=== PATIENT | male | born 1985 | race Caucasian/White ===

== ENCOUNTER 2024-11-15 14:12 | Emergency (ER) | payer MEDICAID, SELFPAY ==
[2024-11-15 14:14] VITALS: BP 141/88; PULSE 68; RESP 18; O2SAT 95
--- NOTE | 2024-11-15 15:00 | DI.RAD_ITS ---
Exam(s) XR ELBOW RT COMPLETE EXAM: XR ELBOW RT COMPLETE CLINICAL HISTORY: C/f distal tendon rupture. TECHNIQUE: 2D digital imaging was performed. COMPARISON: No exams were available for comparison FINDINGS: 3 views No evidence of acute fracture nor elbow joint effusion. There is no swelling of the olecranon bursa although there is a small enthesophyte on the posterior olecranon at the triceps tendon insertion reg ion. Bone density is normal. There are no degenerative changes nor loose intra-articular bodies in the el bow joint. Radial head and neck appear unremarkable as do the epicondyles. IMPRESSION: No significant osseous findings in the right elbow. DATA REPOSITORY: RADIATION DOSE DELIVERED:
--- NOTE | 2024-11-15 15:12 | ED.GENADUL_ITS ---
Discharge Plan Disposition Patient Disposition: Home Condition: Stable Discharge Details Clinical Impression: Traumatic rupture of right distal biceps tendon Primary Care Provider: Unknown,Unknown ED Provider: Nitza Jacobs Home Meds and New Rx's Prescriptions: No Action No Known Home Meds Discharge Instructions Instructions: Muscle Strain ED Additional Instructions: You were seen in the emergency department today for evaluation of a biceps injury and were found to have a tear of your biceps tendon. You will undergo surgery with orthopedics tomorrow, they will call you around 7 AM to let you know what time to come back for the surgery. It will likely be around 10 AM. Please have nothing by mouth after midnight, this includes water or any food even in the morning before you come in. I have provided you with a sling which she should wear for comfort and avoid excessive lifting or activity with that right arm. Please use Tylenol and ibuprofen for management of your pain and thank you for allowing us to be part of your care. Referrals: Michael Joseph MD [ [facility] STAFF PHYSICIAN] - 1 day HPI General Mode of arrival: ambulatory . Date/Time Provider Initiated Documentation: 11/15/24 14:18 . Limitations to Documentation: no limitations . Information obtained by: patient, family and old records reviewed . HPI Narrative: HPI: This is a 39-year-old male patient, previously healthy, [id number], presenting for evaluation of a right biceps injury. The patient reports that approximately 2 hours ago he was pulling something out of his truck, felt a sudden sharp pain and a popping sensation in his right arm. Since that time he has had ongoing pain and feels like it is difficult to extend his arm. The patient was in his normal state of health prior to this event, does not have associated shoulder pain, did not otherwise sustain injury. He has not taken any medications for management of his symptoms. Exam: Gen: Awake and alert, in no apparent distress HEENT: Non-icteric sclera Neck: Supple Lungs: No apparent respiratory distress, normal respiratory effort. CV: Appears well perfused, strong distal pulses Abdomen: Non-distended MSK: Moves 4 extremities without apparent limitation in ROM. The patient has no tenderness to palpation over the proximal biceps tendon at the level of the s houlder, full range of motion of the shoulder. The patient is able to flex his right arm against gravity, has some very subtle weakness of the right arm with resisted flexion compared to the left arm. The patient has breakaway weakness and pain with supination against resistance of the right arm. Tenderness and a small bulge just proximal to the antecubital fossa Skin: Visualized skin without rashes, cyanosis. Neuro: Normal Gait, no obvious focal deficits or facial asymmetry. Speaks in full, clear sentences. Psych: Appropriate for situation. MDM: This is a 39-year-old male patient presenting for evaluation of biceps injury. My differential includes but is not limited to distal biceps rupture, partial tear, strain. The patient reassuringly has no evidence of comorbid traumatic injury, is neurovascularly intact distal to the injury, and was in his normal state of health previously. The case was discussed with orthopedics given the patient's young age and the injury to the dominant arm, and we will proceed with x-rays of the affected elbow. The patient declines medications for management of pain at this time. ED Course: X-ray without osseous abnormality, we were able to obtain an MRI and orthopedics evaluated the patient at bedside. MRI is consistent with a distal biceps tendon rupture, and the plan is for outpatient surgical intervention tomorrow with orthopedics. The patient was provided with a sling, will be n.p.o. at midnight, and understands to reach out to the clinic if he has any questions. He was encouraged to use Tylenol and ibuprofen as needed for pain. At this time, the patient has had a full medical evaluation and is safe for discharge to home. They are hemodynamically stable, ambulatory, and tolerating PO. They are understanding of the follow-up plan and return precautions. They left our facility without incident. Nitza Jacobs MD Related Data Home Medications ?Medication ?Instructions ?Recorded ?Confirmed Unknown [No Known Home Meds] 11/15/24 11/15/24 Allergies Allergy/AdvReac Type Severity Reaction Status Date / Time No Known Allergies Allergy Verified 11/15/24 14:17 General Stated Complaint: Orthopedic DACIA: 4 Course Vital Signs Vital signs: Vital Signs Pulse 68 11/15/24 14:14 Respiratory Rate 18 11/15/24 14:14 Blood Pressure 141/88 H 11/15/24 14:14 Pulse Oximetry 95 11/15/24 14:14 Temperature Source Oral 11/15/24 14:14 Pulse 68 11/15/24 14:14 Respiratory Rate 18 11/15/24 14:14 Blood Pressure 141/88 H 11/15/24 14:14 Blood Pressure Position Sitting 11/15/24 14:14 Pulse Oximetry 95 11/15/24 14:14 Oxygen Delivery Method Room Air 11/15/24 14:14 Oxygen Flow Rate 0 11/15/24 14:14 Medical Decision Making Quality:SDOH Health Related Social Needs: No Data to Display PFSH All Active Problems (Updated 11/15/24 @ 18:14 by Nitza Jacobs MD) Traumatic rupture of right distal biceps tendon (Acute 11/15/24) Corneal abrasion, left (Acute) Social History Smoking/Tobacco Use Status: Current every day Tobacco Type: smokeless tobacco Smoking risk assessment performed?: Yes Alcohol Intake: never Drug use: Never Substance use type: does not use Do you feel safe at home: Yes Do you feel safe in your relationship?: Yes
--- NOTE | 2024-11-15 15:24 | W.ORTHOCONSU ---
PFSH All Active Problems (Updated 10/27/20 @ 18:03 by VIJAY Ortega) Corneal abrasion, left (Acute) Social History Smoking/Tobacco Use Status: Current every day Tobacco Type: smokeless tobacco Smoking risk assessment performed?: Yes Alcohol Intake: never Drug use: Never Substance use type: does not use Do you feel safe at home: Yes Do you feel safe in your relationship?: Yes Results Last Vital Signs Pulse 68 11/15/24 14:14 Resp 18 11/15/24 14:14 BP 141/88 H 11/15/24 14:14 Pulse Ox 95 11/15/24 14:14
--- NOTE | 2024-11-15 15:30 | W.ORTHOCONSU ---
Date of service: 11/15/24 Time of Service: 15:31 Assessment and Plan Assessment and plan (1) Traumatic rupture of right distal biceps tendon: Status: Acute Assessment and plan: 39-year-old [id number] male with right distal biceps injury. Patient was pulling a heavy object out a truck about 2 hours ago and felt a sudden pop in his biceps. Now with significant pain and difficulty with supination and full extension of the elbow. Reports pain is in the mid to distal biceps. Admits to a mild ache or pressure sensation that radiates into his shoulder. Denies numbness, tingling, weakness. Denies prior elbow, arm, shoulder injury. Presents to the ER for evaluation. Declined any pain medication. Elbow x-ray pending. Right arm exam: Skin is intact without erythema or ecchymosis. There is a subtle fullness to the mid-distal biceps when compared to the contralateral side. Demonstrates full range of motion of the shoulder which is essentially painless. No proximal biceps discomfort. Patient demonstrates full flexion. Extension is slightly limited secondary to discomfort. No difficulty with pronation. Moderate discomfort and limitation with supination. I do believe that I can appreciate a tendon with the hook test; however, the test is exquisitely tender. There is mild discomfort about the proximal radius as well. Wrist and hand unremarkable. Sensation intact throughout. Normal radial pulse and capillary refill. Right elbow x-ray ordered and reviewed, no acute bony abnormality. Lateral view is suspicious for Timo. Discussed in length with patient. Patient would want to proceed with surgical intervention if indicated. Concern for high-grade distal biceps rupture. Plan to obtain MRI on the ER and if positive plan for repair tomorrow. MRI pending. Opal update- MRI+ complete distal biceps tear NPO post MN Return tomorrow for surgical repair through [facility] PENDING SALE TO [facility] All Active Problems (Updated 11/15/24 @ 15:40 by Michael Joseph MD) Traumatic rupture of right distal biceps tendon (Acute 11/15/24) Corneal abrasion, left (Acute) Social History Smoking/Tobacco Use Status: Current every day Tobacco Type: smokeless tobacco Smoking risk assessment performed?: Yes Alcohol Intake: never Drug use: Never Substance use type: does not use Do you feel safe at home: Yes Do you feel safe in your relationship?: Yes Results Last Vital Signs Pulse 68 11/15/24 14:14 Resp 18 11/15/24 14:14 BP 141/88 H 11/15/24 14:14 Pulse Ox 95 11/15/24 14:14
--- NOTE | 2024-11-15 15:46 | DI.MRI_ITS ---
Exam(s) MR UPPER JOINT RT WO EXAM: MR UPPER JOINT RT WO CLINICAL HISTORY: Eval distal biceps rupture TECHNIQUE: Multiplanar multisequence MRI was performed without intravenous contrast. COMPARISON: No exams were available for comparison FINDINGS: MARROW: There is no evidence of fracture, bone contusion, nor ominous osseous lesions. ELBOW JOINT: There is no evidence of elbow joint effusion.No significant cartilage loss nor osteochon dral defect and there is no evidence of loose intra-articular body. There are no osteophytes. EPICONDYLES: There is no abnormal intraosseous signal in the epicondyles and there is no significant abnormal signal on the common extensor and flexor tendons. ULNAR COLLATERAL LIGAMENT: The anterior band which extends from the medial epicondyle to the sublime tubercle of the coronoid process of the ulna is intact. This structure is the strongest ligament in t he elbow and is the main opponent to severe valgus stress. RADIAL COLLATERAL LIGAMENT: Intact TENDONS: There appears to be tearing of the biceps tendon both approximately at the musculotendinous junction, at its mid aspect, and distally at the insertional aspect where it appears non continuous at the lev el of the radial tuberosity insertion site. . The brachialis tendon is intact. The triceps tendon is intact. CUBITAL TUNNEL/ULNAR NERVE: The ulnar nerve appears unremarkable beneath the cubital tunnel retinacul um/ arcuate ligament and posterior to the medial epicondyle. There is no evidence of arthritic spur arising from the epicondyle nor olecranon causing impingement on the ulnar nerve. There is no eviden ce of accessory anconeus muscle causing impingement at this level. There is also no evidence of soft tissue mass nor ganglia on cyst causing impingement at this level. OTHER FINDINGS: None IMPRESSION: 1. Findings are consistent with multilevel tear of the biceps tendon. There is high-grade partial te aring of the tendon proximally at the musculotendinous junction as well as partial thickness tearing at the mid aspect of the tendon and full-thickness tearing distally evident. 2. No fractures nor bone contusions and there is no significant size elbow joint effusion or loose in tra-articular bodies. 3. No evidence of epicondylitis. Report called by myself to physician 11/15/2024 at 5:20 p.m. DATA REPOSITORY:
== END 2024-11-15 19:43 | disposition home or self-care (01) ==
PROVIDERS: Emergency Provider Emergency Medicine
DX: S46.211A Strain of muscle, fascia and tendon of other parts of biceps, right arm, initial encounter (principal); X50.0XXA Overexertion from strenuous movement or load, initial encounter
CPT/HCPCS: 99284; 73080; 73221

== ENCOUNTER 2024-11-16 09:35 | Day surgery (SDC) | payer MEDICAID, SELFPAY ==
[2024-11-16] VITALS (25 sets, daily range): BP systolic 103–125; BP diastolic 57–80; PULSE 61–75; RESP 12–23; TEMP 36.1–36.9; O2SAT 93–98; BMI 32.4
--- NOTE | 2024-11-16 07:16 | ROE_ITS ---
Operative Note Operative Note PRE-OP DIAGNOSIS: Right complete distal biceps tendon rupture POST-OP DIAGNOSIS: same PROCEDURE: Right distal biceps tendon repair, CPT #49549 SURGEON: Michael Joseph CONTAINER PACKER OPERATOR: Judith Crystal ANESTHESIA TYPE: Local By Surgeon and General LMA/ETT Refer to Anesthesia Record ESTIMATED BLOOD LOSS: 10 COMPLICATIONS: None Patient was transported to: PACU Patient's condition: stable Implants: Arthrex distal biceps button Indications: Please see complete medical record for details. Findings: Complete retracted distal biceps tendon. Unusual vein, artery, and tendon anatomy. Procedure Description: In the operating room, general anesthesia was induced. The patient was positioned supine on the operating room table. All bony prominences were well- padded. Preoperative antibiotics were administered. The right elbow was prepped and draped in the usual sterile fashion. The correct patient, procedure, and side of the procedure were all verified prior to incision. The radial tuberosity was localized fluoroscopically and supination and a medium size longitudinal incision preinjected with 0.25% bupivacaine. The skin was opened, subcutaneous and deeper tissue spread with the forearm in full supination targeting the radial tuberosity. There were significant crossing and branching neurovascular structures. Superficial nerves were retracted to the sides. Smaller veins were coagulated. Deeper structures were avoided and protected throughout. Exposure was quite a bit more challenging than usual with abundant and centrally located and crossing artery, vein, and nerve structures. The radial artery and larger veins were carefully maintained and retracted ulnarly. Minimal retraction was used radially to avoid the PIN. The radial tuberosity was exposed and had a minor amount of tendon remnant, but the remainder was completely torn and retracted. The biceps tendon was not present in the proximal forearm or about the antecubital area in the elbow. Blunt dissection and digital feel was used to find the tendon in the distal arm in a somewhat more medial position than usual folded up and retracted. It was grasped carefully and brought back down into the incision. It was prepared with fiber loop and the widely fanning out ends distally were trimmed to fit and an 8 mm socket. The tendon was then compressed in a 7 mm graft tube. The radial tuberosity is once again localized with the arm in full supination using fluo roscopic assistance and careful retraction. The the spade tip guidewire was drilled carefully bicortically followed by unicortical over reaming with an 8 mm low-profile reamer. The reamer and guidewire removed. Appropriate socket creation was confirmed and the wound was copiously irrigated to remove all reamings and debris. The FiberWire ends from the fiber loop were loaded on the button and then shuttled back through the prepared end of the graft using the free Manjarrez needle for the modified tension?slide technique. The button was then passed into the socket, just through the far cortex, and flipped. The tendon ends was then delivered into the socket via tension slide and secured with knots tied. Fluoroscopy was used to confirm appropriate button cortical placement. The free needle was then used to shuttle a single and of the FiberWire more proximally through the repaired end of the tendon and knots tied again for added fixation. The tendon had good fixation and repair without undue tension. The wound was copiously irrigated normal saline. Hemostasis was appropriate after coagulating a few smaller vein ends. The wound was irrigated again. A gram of Vanco mycin powder was distributed to the deep and superficial layers. Subcutaneous tissue was closed with 2-0 Monocryl buried erupted. Skin was closed using 3-0 Monocryl running subcuticular. Skin glue applied followed by Mepilex Band-Aid. The elbow was wrapped gently Charly bandage and the extremity placed into a sling. The patient awoke from anesthesia without complication and was transferred to the recovery room in a stable condition. The radial artery was palpated in the unusual location, which was noted preoperatively on the radial margin of the wrist, not really volar. There was brisk cap refill in all radial through ulnar digits equal to the other side. Pulse oximeter on the radial and ulnar digits was full and symmetric with excellent waveform. Ultrasound was used by the V[employer]IN[employer] MEAT INSPECTOR to confirm this unusual radial artery anatomy with intact pulsatile waveform. Thumb and index finger extension was full and strong intact. Date of Procedure: 11/16/24
--- NOTE | 2024-11-16 07:19 | W.PM.DSUDISC ---
Date of service: 11/16/24 Discharge Plan Disposition Patient Disposition: Home Condition: Stable Discharge Details Attending Provider: Michael Joseph Primary Care Provider: Unknown,Unknown Home Meds and New Rx's Prescriptions: New naproxen 250 mg tablet 250 - 500 mg PO BID PRN (Reason: moderate pain and swelling) Qty: 40 0RF oxycodone 5 mg tablet 5 - 10 mg PO .q4-6h MDD 30 mg PRN (Reason: severe pain) Qty: 18 0RF Discharge Instructions Additional Instructions: Surgery: Right distal biceps tendon repair Activity: Protected use right upper extremity for about 2-3 months. Use the sling for support when out of the house for about 1 month. Otherwise, you may rest the right upper extremity at your side or on pillows. Encourage full elbow range of motion. Gentle use okay (e.g., writing, typing, eating, and drinking). Do not lift more than a couple pounds (i.e., coffee) for 6 weeks. A physical therapy prescription will be sent electronically to start about 3 weeks. PT protocol: Immediate full active range of motion okay Isometrics after 1 month Concentric strengthening after 2 months Eccentric strengthening after 3 months Prescriptions: Naproxen 250 mg take 1-2 every 12 hours with a meal as needed for moderate pain Oxycodone 5 mg take 1-2 every 4-6 hours as needed for severe pain You may use [id number]-[id number] Tylenol (acetaminophen) as needed for mild pain. These pain medications may be taken all at once or in different combinations as needed. Also, recommend Colace (docusate) as a stool softener as surgery and pain medicine cause constipation. You may try xqmo-ych-lilapff diphenhydramine (Benadryl) 25-50 mg nightly as a sleep aid Dressings: Leave splint and dressing in place until follow-up. Keep clean and dry at all times. Follow-up: 10-[address] Joseph You may take off the leg compression stockings this evening at home. You may also leave them on a few days longer if you have a history of leg swelling or edema. Let us know right away if you develop any redness, drainage, fevers, chest pain, or trouble breathing. Do not drink alcohol or drive for at least 24 hours after anesthesia. Please call the office during business hours with any questions or concerns. Discharge Orders Discharge Orders: Discharge Order (Routine); Ordered 11/16/24 Ordered By: Judith Crystal DS: Diagnosis Discharge Diagnosis (1) Traumatic rupture of right distal biceps tendon: Status: Acute
--- NOTE | 2024-11-16 08:20 | W.ANESPRE ---
General Info Date of Service Date Performed: 11/16/24 Height: 5 ft 8 in Weight: 96.9 kg Body Mass Index (BMI): 32.4 Surgical Procedure: Operation Date: 11/16/24 12:55 Proposed Procedure Side Surgeon p Distal Bicep Tendon Repair Right Michael Joseph MD Meds Allergies and Home Medications Allergies Allergy/AdvReac Type Severity Reaction Status Date / Time No Known Allergies Allergy Verified 11/16/24 09:51 Home Medication ?Medication ?Instructions ?Recorded Unknown [No Known Home Meds] 11/15/24 Current Visit Medications: Current Medications Generic Name Dose Route Start Last Admin Trade Name Freq PRN Reason Stop Dose Admin Ringer's Solution 1,000 mls @ 30 mls/hr 11/16/24 06:00 IV 11/16/24 23:59 INFUSION PEARL Cefazolin Sodium/Dextrose 2 gm in 50 mls @ 100 mls/hr 11/16/24 06:00 Ancef Duplex IVPB 11/16/24 23:59 PREOP PEARL Tranexamic Acid/Sodium Chloride 1,000 mg in 100 mls @ 600 mls/hr 11/16/24 06:00 IVPB 11/16/24 23:59 PREOP PEARL IV Miscellaneous Supplies 1 each 11/16/24 06:00 Iv Access IV 11/16/24 23:59 DIRECTED PEARL Oxycodone HCl 0 mg 11/16/24 07:19 Oxycodone 5 Mg Tab PO 12/16/24 07:18 Q3H PRN PRN Pain Sodium Chloride 0 ml 11/16/24 06:00 Normal Saline Flush 10 Ml Syr IV 11/16/24 23:59 PRN PRN Sodium Chloride 0 ml 11/16/24 06:00 Normal Saline 10 Ml Vial IJ 11/16/24 23:59 DIRECTED PRN Sterile Water 0 ml 11/16/24 06:00 Water,Injection,Sterile 10 Ml Vial IJ 11/16/24 23:59 DIRECTED PRN PFSH Active Problems Active Problems: Problem Status Onset Code Traumatic rupture of right distal biceps tendon Acute 11/15/24 S46.211A Corneal abrasion, left Acute S05.02XA Tobacco Smoking/Tobacco Use Status: Current every day Tobacco Type: smokeless tobacco Alcohol Alcohol Intake: never Substance Use Substance use: Never Substance use type: does not use Vital Signs and Lab Results Vital Signs Most Recent Vital Signs in EMR: Temp Pulse Resp BP Pulse Ox 36.4 C L 70 16 121/77 98 11/16/24 09:39 11/16/24 09:39 11/16/24 09:39 11/16/24 09:39 11/16/24 09:39 Lab Results Blood Type / Crossmatch: No Data to Display Complete Blood Count: No Data to Display Complete Metabolic Panel: No Data to Display Liver Function Panel: No Data to Display Coagulation Panel: No Data to Display Cardiac Panel: No Data to Display Arterial Blood Gas: No Data to Display Venous Blood Gas: No Data to Display Pancreas Panel: No Data to Display Thyroid Panel: No Data to Display Infectious Disease: No Data to Display Blood Cultures: No Data to Display Toxicology Panel: No Data to Display Anesthesia Assessment and Plan Anesthesia History Personal History: No History of Anesthesia Complications Family History: No Family History of Anesthesia Complications Exercise Tolerance Exercise Tolerance: Metabolic Equivalents>4 Cardiac & Pulmonary Exam Cardiac Exam: Normal S1/S2 Heart Sounds Pulmonary Exam: Clear Bilateral Breath Sounds Implantable Cardiac Device Does patient have a Pacemaker or an ICD?: No Airway Exam Known Difficult Airway: No Mallampati Class: 4 Mouth Opening: Narrow (< 3cm) Thyromental Distance: Less than 3 cm Neck Range of Motion: Full ROM Neck Circumference: Thick Teeth Condition: Normal Dentition ASA Classification ASA Score: ASA 2 Emergency Case?: No NPO Status NPO Status: NPO Clears >2 hours, Solids >8 hours Anesthesia Plan Resuscitation Status: Full Code Anesthesia Technique: General Anesthesia Airway Planned: Endotracheal Tube Pain Management: Surgeon and patient request nerve block Monitors Used: Standard Monitors Preoperative Comments:: 39 yo male for distal bicep tear. Presented to the ER yesterday with upper arm pain after pulling on something, found to have a tear. Sig PMHx: smokeless tobacco (none today). denies major. Discussed risks, benefits, and alternatives of regional anesthesia. Pt would like to not have regional, but is agreeable to a rescue block.
[2024-11-16] MEDS: Lactated Ringers 1,000 ML 30 ML IV (10:18)
[2024-11-16] MEDS: ceFAZolin 2 GM/50 ML BAG IVPB (13:17)
[2024-11-16] MEDS: TRANEXAMIC ACID/SOD. CHL. 1,000 MG/100 ML BAG 600 MG IVPB (13:18)
[2024-11-16] MEDS: Bupivacaine 0.25% Pres-Free W/EPI 30 ML VIAL (13:37)
--- NOTE | 2024-11-16 15:13 | DI.RAD_ITS ---
Exam(s) XR ELBOW RT LIMITED EXAM: XR ELBOW RT LIMITED CLINICAL HISTORY: Traumatic rupture of right distal biceps tendon. TECHNIQUE: 2D digital imaging was performed. COMPARISON: No exams were available for comparison FINDINGS: Fluoroscopy provided during orthopedic repair of ruptured biceps tendon. See procedure report for de tails. Total fluoroscopy time 11.7 seconds IMPRESSION: Radiation exposure index/cumulative dose:Ka,r= 0.5016 mGy DATA REPOSITORY: RADIATION DOSE DELIVERED:
[2024-11-16] MEDS: HYDROmorphone 1 MG/ML SYR IVP (16:01)
--- NOTE | 2024-11-16 16:02 | W.ANESPOSTOP ---
Postoperative Evaluation Date, Time and Location Date Performed: 11/16/24 Time Performed: 15:30 Patient Location: Day Surgery Unit Vital Signs Most Recent Imported Vital Signs: Most Recent Vital Signs Temp Pulse Resp BP Pulse Ox 36.7 C 66 14 109/71 94 11/16/24 15:50 11/16/24 15:50 11/16/24 15:51 11/16/24 15:50 11/16/24 15:50 Pain Score Most Recent Pain Score: Most Recent Pain Score Pain Level 4 11/16/24 15:47 Assessment Mental Status: Awake (Alert & Oriented to Patient Baseline) Airway and Respiratory Function: Patent airway with normal (patient baseline) respiratory exam Cardiovascular Function: Hemodynamically Stable Hydration Status: Adequately Hydrated Nausea & Vomiting: No Nausea or Vomiting Pain: Pain is tolerable per patient Peripheral Nerve Block: Patient did not receive a nerve block
== END 2024-11-16 17:26 | disposition home or self-care (01) ==
PROVIDERS: Visit Provider Student in an Organized Health Care Education/Training Program
PROC: (CPT 24341; principal; 2024-11-16 12:45)
DX: S46.211A Strain of muscle, fascia and tendon of other parts of biceps, right arm, initial encounter (principal); X58.XXXA Exposure to other specified factors, initial encounter
CPT/HCPCS: 24342; 73070; J0131; J0665; J0690; J1100; J1171; J1885; J2250; J2405; J2704; J3370

== ENCOUNTER 2025-10-29 03:17 | Emergency (ER) | payer MEDICAID, SELFPAY ==
[2025-10-29 03:20] VITALS: BP 134/86; PULSE 96; RESP 16; TEMP 36.5; O2SAT 97
--- NOTE | 2025-10-29 03:45 | DI.CT_ITS ---
Exam(s) CT ABDOMEN PELVIS CTA EXAM: CT ABDOMEN PELVIS CTA CLINICAL HISTORY: Hematemesis and hematochezia. GI bleed protocol. TECHNIQUE: Imaging Protocol: Axial computed tomography images with coronal and sagittal reformatted images were created and reviewed CONTRAST MATERIAL: Intravenous: Omnipaque 350 Contrast volume:100 ml Oral: None COMPARISON: No exams were available for comparison FINDINGS: ABDOMEN: GI: There is no ascites. There is no intraluminal extravasation of injected intravenous 2 suggest the GI bleeding source location. There are some abnormally dilated central small bowel loops which measure up to 2.8 cm and exhibit mucosal enhancement. No surrounding fluid nor free air. Transition po int appears to be in the right iliac fossa although the bowel is not collapsed distal to this level. There is no evidence of abdominal aortic aneurysm nor dissection.There is no aneurysmal dilatation of the common iliac arteries. Also no dissection of the iliac vessels.The celiac and superior mesenteric arteries are patent.Inferior mesenteric artery also demonstrated to be patent. There is no significant atherosclerotic disease in the abdominal aorta and iliac arteries Renal arteries are patent without significant stenosis nor FMD There is no ascites. LIVER: There are no focal hepatic lesions nor dilatation of intrahepatic ducts. GALLBLADDER/BILIARY: No obvious gallbladder pathology. CBD is not dilated. PANCREAS: No evidence of pancreatic mass nor dilatation of the pancreatic duct. SPLEEN: Spleen size is upper normal. There are no discrete splenic lesions evident. The splenic and portal veins are patent. ADRENALS: There are no significant adrenal masses. KIDNEYS: No cysts evident. No calculi nor hydronephrosis. No solid renal masses. LYMPH NODES: There is no retroperitoneal nor para-aortic adenopathy. No obvious mesenteric masses. ABDOMINAL WALL: There is a fat only containing midline umbilical hernia. PELVIS: LYMPH NODES: There is no intrapelvic nor inguinal adenopathy. GI: No evidence of appendicitis.No evidence of sigmoid diverticulitis. URINARY BLADDER: No calculi nor masses evident REPRODUCTIVE: Prostate not enlarged. Seminal vesicles unremarkable. OSSEOUS: No significant osseous lesions. IMPRESSION: 1. There is some a dilatation and circumferential mural enhancement in mid level small-bowel loops. Maximum diameter 2.7 cm. Developing obstruction versus ileus pattern. Recommend clinical correlation. 2. No free air and no ascites evident. 3. No intraluminal GI bleeding site identified. Preliminary V rad report was reviewed. RADIATION DOSE DELIVERED: 1,196.07mGy.cm Total DLP DATA REPOSITORY: All CT scans at this facility are submitted to the National Radiology Data Registry (NRDR) Dose Index Registry (DIR) with the [employer] (ACR). RADIATION OPTIMIZATION: All CT scans at this facility use at least one of these dose optimization techniques: automated exposure control; mA and/or kV adjustment per patient size (includes targeted exams where dose is matched to clinical indication); or iterative reconstruction.
[2025-10-29 03:46] LABS: Abs Immature Grans 0.02 10^3/uL (0.0-0.06); HCT 48.8 % (40.0-50.0); HGB 16.8 g/dL (13.5-17.5); Immature Grans % 0.2 %; MCH 29.3 pg (27.0-33.0); MCHC 34.4 % (32.0-36.0); MCV 85 fL (80-95); MPV 10.6 fL (8.0-11.0); Platelet Count 273 10^3/uL (130-400); RBC 5.74 10^6/uL (4.36-5.78); RDW 12.2 % (11.8-14.1); RDW-SD 37.2 fL; WBC 9.92 10^3/uL (4.4-10.8)
[2025-10-29] MEDS: Omnipaque 350 MG/ML 100 ML BTL IJ (03:49)
[2025-10-29] MEDS: Normal Saline - Diluent 50 ML VIAL IJ (03:49)
[2025-10-29] MEDS: Normal Saline Flush 10 ML SYR IVP (03:49)
[2025-10-29] MEDS: Famotidine 20 MG/2 ML VIAL IVP (03:55)
[2025-10-29] MEDS: Ondansetron 4 MG/2 ML VIAL IVP (03:55)
[2025-10-29] MEDS: Mylanta Suspension 30 ML CUP PO (03:55)
[2025-10-29] MEDS: Normal Saline 1,000 ML 1000 ML IV (03:55)
[2025-10-29] MEDS: Sucralfate 1 GM TAB PO (03:55)
[2025-10-29] MEDS: Pantoprazole 40 MG VIAL IVP (03:55)
--- NOTE | 2025-10-29 03:56 | ED.GENADUL_ITS ---
Discharge Plan Disposition Patient Disposition: Home Condition: Good Discharge Details Clinical Impression: Vomiting, Hematemesis Primary Care Provider: Unknown,Unknown ED Provider: Royal Vazquez Home Meds and New Rx's Prescriptions: New sucralfate [Carafate] 1 gram tablet 1 g PO BID Qty: 60 0RF famotidine 20 mg tablet 20 mg PO DAILY Qty: 60 0RF pantoprazole [Protonix] 40 mg tablet,delayed release (DR/EC) 40 mg PO DAILY Qty: 60 0RF No Action clotrimazole 1 % cream 1 applic topical BID 21 Days Qty: 45 2RF triamcinolone acetonide 0.1 % cream 1 applic topical BID PRN (Reason: rash) Qty: 30 0RF Rx Instructions: apply to affected area 2x daily as needed Discharge Instructions Instructions: GI bleed Additional Instructions: At this time your workup is returned reassuring. Your blood levels are normal, the CAT scan shows no evidence of active bleed. It is very important that you take the prescribed antiacid medications as directed to prevent any further bleed. Please stick with a bland diet, avoid any tomato-based products, spicy foods, citrus foods or carbonated beverages. We have placed a referral with our surgeons for outpatient follow-up for EGD and further evaluation. They will contact you for an appointment time. If you notice any worsening of your symptoms, or any new symptoms such as vomiting, diarrhea, fever, chills, shortness of breath, chest pain, numbness, weakness, or fainting , please return immediately to the emergency department for reevaluation. Please follow up with your primary care provider as soon as possible for reassessment and reevaluation. As always, it was a pleasure participating in your medical care today. Stand Alone Forms: Portal Information Referrals: Cathy Parish MD [ [facility] STAFF PHYSICIAN, Surgery] Naseem Wilson MD [ [facility] STAFF PHYSICIAN, Surgery] [facility] General Date/Time Provider Initiated Documentation: 10/29/25 03:25 . HPI Narrative: This is a pleasant 40-year-old male with no significant past medical history who presents today for evaluation of hematemesis. Patient states that over the last year or so he has had occasional bright red and bloody stools. These seem to come and go and not be consistent. However this evening he had some nausea, achiness in his epigastrium and then had an episode of vomiting which had a large blood clot and a fair amount of bright red blood. No subsequent episodes of vomiting since then. Patient still does have some mild persistent epigastric achiness and nausea, but no other complaints. Patient denies any excessive alcohol use, and it has been many weeks since his last alcohol intake. He denies any change in diet or medication. No history of scope or EGD in the past. No history of upper GI bleeding before. No chest pain or shortness of breath. No other complaints at this time. Related Data Home Medications ?Medication ?Instructions ?Recorded ?Confirmed clotrimazole 1 % topical cream 1 applic topical BID 21 days #45 06/21/25 grams triamcinolone acetonide 0.1 % 1 applic topical BID PRN rash #30 06/21/25 10/29/25 topical cream grams famotidine 20 mg tablet 20 mg PO DAILY #60 tabs 10/08 01/29 pantoprazole 40 mg tablet,delayed 40 mg PO DAILY #60 t abs 10/29/25 release (Protonix) sucralfate 1 gram tablet (Carafate) 1 g PO BID #60 tab s 10/29/25 Previous Rx's ?Medication ?Instructions ?Recorded clotrimazole 1 % topical cream 1 applic topical BID 21 days #45 06/21/25 grams triamcinolone acetonide 0.1 % 1 applic topical BID PRN rash #30 06/21/25 topical cream grams famotidine 20 mg tablet 20 mg PO DAILY #60 tabs 10/08 01/29 pantoprazole 40 mg tablet,delayed 40 mg PO DAILY #60 t abs 10/29/25 release (Protonix) sucralfate 1 gram tablet (Carafate) 1 g PO BID #60 tab s 10/29/25 Allergies Allergy/AdvReac Type Severity Reaction Status Date / Time No Known Allergies Allergy Verified 10/29/25 03:25 General Stated Complaint: GI Bleed DACIA: 3 Exam Narrative Exam Narrative: 1.Const: Well-nourished, Well-developed, appearing stated age 2.Eyes: PERRL, no conjunctival injection, and symmetrical lids. 3.ENT: Atraumatic external nose and ears. Moist MM. Neck: Symmetric, trachea midline, No thyromegaly. 4.CVS: +S1/S2, Peripheral pulses 2+ and equal in all extremities. Brisk capillary refill in all extremities. 5.RESP: Unlabored respiratory effort. Clear to auscultation bilaterally. No wheezes rales or rhonchi 6.GI: Soft, Nontender/Nondistended, No hepatosplenomegaly. No guarding or rebound. Minimal epigastric achiness 7.MSK: Normocephalic/Atraumatic, Extremities w/o deformity or ttp No cyanosis or clubbing, Normal movement of all extremities 8.Skin: Warm, Dry. No rashes or lesions. 9.Neuro: skip miner II-XII grossly intact. Sensation grossly intact, no focal neurologic deficits. 10.Psych: (AAO) x3. Appropriate mood and affect Course Vital Signs Vital signs: Vital Signs Temperature 36.5 C 10/29/25 03:20 Pulse 96 H 10/29/25 03:20 Respiratory Rate 16 10/29/25 03:20 Blood Pressure 134/86 10/29/25 03:20 Pulse Oximetry 97 10/29/25 03:20 Temperature 36.5 C 10/29/25 03:20 Temperature Source Temporal Artery Scan 10/29/25 03:20 Pulse 96 H 10/29/25 03:20 Respiratory Rate 16 10/29/25 03:20 Blood Pressure 134/86 10/29/25 03:20 Blood Pressure Position Sitting 10/29/25 03:20 Pulse Oximetry 97 10/29/25 03:20 Oxygen Delivery Method Room Air 10/29/25 03:20 Oxygen Flow Rate 0 10/29/25 03:20 Lab/Test Results Lab/Test Results: Laboratory Tests Range/Units 10/29/25 03:45 WBC (4.4-10.8) 10^3/uL 9.92 RBC (4.36-5.78) 10^6/uL 5.74 Hgb (13.5-17.5) g/dL 16.8 Hct (40.0-50.0) % 48.8 MCV (80-95) fL 85 MCH (27.0-33.0) pg 29.3 MCHC (32.0-36.0) % 34.4 RDW (11.8-14.1) % 12.2 Plt Count (130-400) 10^3/uL 273 MPV (8.0-11.0) fL 10.6 Immature Gran % % 0.2 Neutrophils % % 85.7 Lymphocytes % % 4.6 Monocytes % % 7.7 Eosinophils % % 1.5 Basophils % % 0.3 Nucleated RBC % (0.0-0.3) % 0.0 Absolute Neutrophils (1.2-6.7) 10^3/uL 8.50 H Absolute Lymphocytes (1.2-3.4) 10^3/uL 0.46 L Absolute Monocytes (0.1-0.8) 10^3/uL 0.76 Absolute Eosinophils (0.0-0.7) 10^3/uL 0.15 Absolute Basophils (0.0-0.2) 10^3/uL 0.03 Medical Decision Making This is a pleasant 40-year-old male with no significant past medical history who presents today for evaluation of hematemesis. Patient states that over the last year or so he has had occasional bright red and bloody stools. These seem to come and go and not be consistent. However this evening he had some nausea, achiness in his epigastrium and then had an episode of vomiting which had a large blood clot and a fair amount of bright red blood. No subsequent episodes of vomiting since then. Patient still does have some mild persistent epigastric achiness and nausea, but no other complaints. Patient denies any excessive alcohol use, and it has been many weeks since his last alcohol intake. He denies any change in diet or medication. No history of scope or EGD in the past. No history of upper GI bleeding before. No chest pain or shortness of breath. No other complaints at this time. Exam demonstrates a well-appearing male, no guarding or rebound on abdominal exam. Minimal epigastric achiness. Vital signs stable, no tachycardia or hypotension of significance. We will rehydrate, give Carafate Protonix famotidine and GI cocktail. Suspect gastric ulcer, notably less likely would be esophageal varices as he has no history of significant alcohol intake varices or hepatic failure. He has no telangiectasias. Or other abnormalities. Will rehydrate, get CT imaging to rule out mass, will monitor closely and reassess 7:09 AM Laboratory workup has returned, hemoglobin stable, no evidence of anemia, electrolytes stable, lipase normal. Patient CT scan shows no evidence of active gastrointestinal hemorrhage. Small bit of inflammatory components in the small and large bowel. Patient denies any known family history of ulcerative colitis or Crohn's. Patient feels well, he has had no further vomiting. His abdominal pain is resolved. Symptoms are likely secondary to gastric ulcer causing subsequent bleed, and at this time there is no clinical or historical evidence to suggest esophageal varices, life-threatening bleed, gastric perforation, or other life-threatening acute surgical abnormality. Patient will be started on Carafate, Protonix and famotidine for home care. Discussed dietary change recommendations. Will place referral for outpatient surgery follow-up for EGD. I have extensively reviewed the treatment plan and discharge instructions with the patient. I have addressed all patient concerns at this time. The patient was made aware of what symptoms to monitor for that would warrant a return to the emergency department. Discussed the plan with the patient, they demonstrate verbal understanding and agreement with our assessment and plan at this time. The documentation in this chart was dictated using W4 dictation software. Please excuse any dictation errors. FINDINGS: Limitations: Contrast material in the stomach. Lungs: Multiple subcentimeter pulmonary nodules. Follow-up per institutional protocol if prior studies do not adequately document stability. Aorta: No aortic aneurysm. No aortic dissection. Celiac and mesenteric arteries: No occlusion or significant stenosis. Renal arteries: No occlusion or significant stenosis. Right iliac arteries: No occlusion or significant stenosis. Left iliac arteries: No occlusion or significant stenosis. Liver: Borderline hepatomegaly. Gallbladder and biliary ducts: No calcified stones. Pancreas: No evidence for acute pancreatitis. Spleen: Borderline splenomegaly. Adrenal glands: Nodular adrenal thickening. Kidneys and ureters: No hydronephrosis. Stomach and bowel: No intestinal obstruction is evident. Areas of mild small bowel thickening. Fluid in nondilated small bowel. Colonic diverticula. Areas of apparent mural thickening in the colon commensurate with underdistention. Appendix: No evidence of appendicitis. Intraperitoneal space: No free air. Lymph nodes: Nonspecific mesenteric and retroperitoneal lymph nodes. Urinary bladder: The urinary bladder appears mildly thickened but is incompletely distended. Reproductive: Mildly prominent prostate. Bones/joints: No acute fracture. Soft tissues: Fat containing ventral hernia. IMPRESSION: 1. No active gastrointestinal hemorrhage appreciated. 2. Areas of small and large bowel thickening, may be transient/secondary to incomplete distension but cannot exclude enterocolitis. Clinical correlation advised. 3. Additional findings as above. Thank you for allowing us to participate in the care of your patient. Dictated and Authenticated by: Keiko Dorsey MD 10/29/2025 6:33 AM Eastern Time ([place] & [place]) PFSH All Active Problems (Updated 10/29/25 @ 07:03 by Royal Vazquez DO) Hematemesis (Acute) Vomiting (Acute) Traumatic rupture of right distal biceps tendon (Acute 11/15/24) Corneal abrasion, left (Acute) Social History Smoking/Tobacco Use Status: Current every day Tobacco Type: smokeless tobacco Smoking risk assessment performed?: Yes Alcohol Intake: never Drug use: Never Substance use type: does not use Do you feel safe at home: Yes Do you feel safe in your relationship?: Yes
[2025-10-29 04:01] LABS: INR 1.0 (0.9-1.1); PTT Activated 23.7 sec (20.6-30.2); Prothrombin Time 9.5 sec (9.1-11.1)
[2025-10-29 04:10] LABS: Lipase 45 U/L (<53)
[2025-10-29 04:12] LABS: ALT 54 U/L (10-49); AST 35 U/L (<34); Albumin 4.6 g/dL (3.2-5.0); Alkaline Phosphatase 73 U/L (46-116); Anion Gap 9.5 mmol/L (3-11); BUN 15 mg/dL (9-23); Bilirubin, Total 1.2 mg/dL (0.2-1.2); CO2 26.5 mmol/L (20.0-31.0); Calcium 9.0 mg/dL (8.3-10.6); Chloride 109 mmol/L (98-107); Glucose 106 mg/dL (74-106); Potassium 3.9 mmol/L (3.5-5.1); Sodium 145 mmol/L (136-145); Total Protein 7.1 g/dL (5.7-8.2)
[2025-10-29 05:00] VITALS: BP 136/82; PULSE 90; RESP 16; O2SAT 98
--- NOTE | 2025-10-29 06:34 | DI.VRAD_ITS ---
PROCEDURE INFORMATION: Exam: CTA Abdomen and Pelvis Without And With Contrast Exam date and time: 10/29/2025 3:50 AM Age: 40 years old Clinical indication: Other: Hematemesis and hematochezia TECHNIQUE: Imaging protocol: Computed tomographic angiography of the abdomen and pelvis without and with contrast. Exam focused on the arteries. 3D rendering (Not supervised by radiologist): MIP and/or 3D reconstructed images were created by the technologist. Radiation optimization: All CT scans at this facility use at least one of these dose optimization techniques: automated exposure control; mA and/or kV adjustment per patient size (includes targeted exams where dose is matched to clinical indication); or iterative reconstruction. Contrast material: OMNIPAQUE 350; Contrast volume: 100 ml; Contrast route: INTRAVENOUS (IV); COMPARISON: No relevant prior studies available. FINDINGS: Limitations: Contrast material in the stomach. Lungs: Multiple subcentimeter pulmonary nodules. Follow-up per institutional protocol if prior studies do not adequately document stability. Aorta: No aortic aneurysm. No aortic dissection. Celiac and mesenteric arteries: No occlusion or significant stenosis. Renal arteries: No occlusion or significant stenosis. Right iliac arteries: No occlusion or significant stenosis. Left iliac arteries: No occlusion or significant stenosis. Liver: Borderline hepatomegaly. Gallbladder and biliary ducts: No calcified stones. Pancreas: No evidence for acute pancreatitis. Spleen: Borderline splenomegaly. Adrenal glands: Nodular adrenal thickening. Kidneys and ureters: No hydronephrosis. Stomach and bowel: No intestinal obstruction is evident. Areas of mild small bowel thickening. Fluid in nondilated small bowel. Colonic diverticula. Areas of apparent mural thickening in the colon commensurate with underdistention. Appendix: No evidence of appendicitis. Intraperitoneal space: No free air. Lymph nodes: Nonspecific mesenteric and retroperitoneal lymph nodes. Urinary bladder: The urinary bladder appears mildly thickened but is incompletely distended. Reproductive: Mildly prominent prostate. Bones/joints: No acute fracture. Soft tissues: Fat containing ventral hernia. IMPRESSION: 1. No active gastrointestinal hemorrhage appreciated. 2. Areas of small and large bowel thickening, may be transient/secondary to incomplete distension but cannot exclude enterocolitis. Clinical correlation advised. 3. Additional findings as above. Dictated and Authenticated by: Keiko Dorsey MD. Orderin George Paige MD
[2025-10-29 07:19] VITALS: BP 125/68; PULSE 83; RESP 14; O2SAT 96
== END 2025-10-29 07:20 | disposition home or self-care (01) ==
PROVIDERS: Emergency Provider Student in an Organized Health Care Education/Training Program
DX: R11.10 Vomiting, unspecified (principal); R19.7 Diarrhea, unspecified; K92.0 Hematemesis
CPT/HCPCS: 99284; 99285; 36415; 96374; 96375; 80053; 83690; 96361; 74174; 85025; 85610; 85730; J2405; J2470; J3490